=== PATIENT | male | born 1950 | race Caucasian/White ===

== ENCOUNTER 2023-09-13 06:54 | Day surgery (SDC) | payer MEDICARE, MEDICAID ==
[2023-09-05 14:34] LABS: BASOPHILS % (AUTO) 0.5 % (0-1); EOSINOPHILS % (AUTO) 0.6 % (0-6); LYMPHOCYTES # (AUTO) 1.3 X10'3 (1.1-4.8); MEAN CORPUSCULAR HEMOGLOBIN 33.5 PG (27.0-31.0); MEAN CORPUSCULAR VOLUME 95.7 FL (78-98); MEAN PLATELET VOLUME 6.8 FL (7.4-10.4); MONOCYTES # (AUTO) 0.4 X10'3 (0-0.9); MONOCYTES % (AUTO) 8.1 % (2-12); NEUTROPHILS # (AUTO) 3.2 X10'3 (1.8-7.7); NEUTROPHILS % (AUTO) 64.8 % (42-75); PRE OP HEMOGLOBIN 13.6 g/dL (14.0-17.9); PRE OP PLATELET COUNT 160 X10'3 (140-440); RED BLOOD COUNT 4.07 X10'6 (4.70-6.10); RED CELL DISTRIBUTION WIDTH 13.6 % (11.5-14.5)
[2023-09-05 14:45] LABS: ALBUMIN 3.5 G/DL (3.4-5.0); ALBUMIN/GLOBULIN RATIO 1.1 (1.1-1.5); ALKALINE PHOSPHATASE 76 IU/L (46-116); BLOOD UREA NITROGEN 17 MG/DL (7-18); BUN/CREATININE RATIO 14.8 (10.0-20.0); CALCIUM 8.6 MG/DL (8.5-10.1); CHLORIDE 109 MMOL/L (99-107); CREATININE 1.15 MG/DL (0.60-1.10); PRE OP ALT 11 U/L (30-65); PRE OP ANION GAP 8 (8-16); PRE OP AST 21 U/L (10-37); PRE OP BILIRUB, TOTAL 0.3 MG/DL (0.0-1.0); PRE OP GLUCOSE 130 MG/DL (70-104); PRE OP SODIUM 146 MMOL/L (135-145); TOTAL CARBON DIOXIDE 29.2 MMOL/L (24-32); TOTAL PROTEIN 6.7 G/DL (6.4-8.2); eGFR 63 ML/MIN
[2023-09-13] VITALS (14 sets, daily range): BP systolic 119–146; BP diastolic 65–92; PULSE 54–72; RESP 11–16; TEMP 97.6; O2SAT 93–99
[~2023-09-13] VITALS: Ht 175.3 cm; Wt 87.0 kg
[~2023-09-13 06:54] MED LIST: ASPI-612 PO; SERT-434 PO; TERA2CAP4 PO; VIT D3
[2023-09-13] MEDS: ringers solution, lacted 1,000 ML IV SCH (08:04)
[2023-09-13] MEDS: famotidine 20mg tablet PO ONE (08:04)
[2023-09-13] MEDS: cefazolin 2gm/D5W 100mL 100 ML IV ONE (08:04)
[2023-09-13] MEDS ORDERED: ringers solution, lacted 1,000 ML IV SCH (08:55)
[2023-09-13] MEDS ORDERED: ondansetron/PF 4mg/2ml inj IV PRN (08:55)
[2023-09-13] MEDS ORDERED: morphine 4 MG/ML inj SYRINge IV PRN (08:55)
[2023-09-13] MEDS ORDERED: meperidine/PF 25mg/ml syringe IV PRN (08:55)
[2023-09-13] MEDS ORDERED: proCHLORperazine 10 MG/2 ml inj IV PRN (08:55)
[2023-09-13] MEDS ORDERED: morphine 2 MG/ML inj. syringe IV PRN (08:55)
[2023-09-13] MEDS ORDERED: sevoflurane 250ml liquid IH ONE (10:01)
[2023-09-13] MEDS ORDERED: midazolam 1 mg/ML 2ml injection ONE (10:06)
[2023-09-13] MEDS ORDERED: fentaNYL/PF 50MCG/1 ML 2ML syringe ONE (10:06)
[2023-09-13] MEDS: LIDOcaine 1% 30ml preserv. free vial ONE (10:34)
[2023-09-13] MEDS: BUPIVAcaine/PF 2.5mg/ml (0.25%) 10ml vial ONE (10:34)
[2023-09-13] MEDS ORDERED: dexamethasone sod phosphate 4mg/ml inj. ONE (10:57)
[2023-09-13] MEDS ORDERED: rocuronium 10mg/ml inj IV ONE (10:57)
[2023-09-13] MEDS ORDERED: ondansetron/PF 4mg/2ml inj ONE (10:57)
[2023-09-13] MEDS ORDERED: propofol inj 20 ML IV ONE (10:57)
[2023-09-13] MEDS ORDERED: glycopyrrolate 0.2mg/ml inj ONE (11:38)
[2023-09-13] MEDS ORDERED: neostigmine methylsulfate 1 MG/ML 10ml vial ONE (11:38)
[2023-09-13] MEDS: meperidine/PF 25mg/ml syringe IV PRN ×2 (11:57→12:45)
[2023-09-13] MEDS ORDERED: HYDROcodone/acetaminophen 5mg/325mg tablet PO PRN (12:25)
== END 2023-09-13 13:21 | disposition home or self-care (01) ==
LOC: PAS 06:54
PROVIDERS: ATTEND Surgery
DX: K40.20 Bilateral inguinal hernia, without obstruction or gangrene, not specified as recurrent (principal); K42.9 Umbilical hernia without obstruction or gangrene; I10 Essential (primary) hypertension; F41.8 Other specified anxiety disorders; F32.A Depression, unspecified; Z87.891 Personal history of nicotine dependence; G47.30 Sleep apnea, unspecified; F98.8 Other specified behavioral and emotional disorders with onset usually occurring in childhood and adolescence; Z79.899 Other long term (current) drug therapy; Z98.890 Other specified postprocedural states; Z79.82 Long term (current) use of aspirin; Z88.8 Allergy status to other drugs, medicaments and biological substances
CPT/HCPCS: 36415; 49591; 49650; 80053; 82948; 85025; 93005; C1781; J0690; J1100; J2175; J2250; J2405; J2704; J2710; J3010; J3490; J7030; J7120; Z7506; Z7508; Z7512; A4215; A4618; A5200; C1758